=== PATIENT | female | born 1990 | race Two or more races ===

== ENCOUNTER → 2024-05-29 | Outpatient (BNVA) | payer MEDICAID, SELFPAY | END | disposition home or self-care (01) | PROVIDERS: PCP Nurse Practitioner Family; Referring Provider Nurse Practitioner Family; Visit Provider Nurse Practitioner Family | DX: Z71.2 Person consulting for explanation of examination or test findings (principal) | CPT/HCPCS: 99213 ==

== ENCOUNTER 2024-07-24 06:55 | Day surgery (SDC) | payer MEDICAID, SELFPAY ==
[2024-07-23 16:55] LABS: HCG Qualitative,Urine Negative
[2024-07-24] VITALS (10 sets, daily range): BP systolic 90–116; BP diastolic 63–77; PULSE 73–95; RESP 11–22; TEMP 36.1–36.2; O2SAT 98–100; BMI 22.3
[2024-07-24] MEDS: fentaNYL CIT INJ 50 mCg/ML AMP 2ML (ASD USE ONLY) IV (08:44)
[2024-07-24] MEDS: MIDAZOLAM INJ 1 MG/ML VIAL 2 ML (ASD USE ONLY) 2 MG IV (08:44)
[2024-07-24] MEDS: DiphenhydrAMINE INJ 50 MG/ML VIAL 25 MG IV (08:44)
[2024-07-24] MEDS: BENZOCAINE 20% (Hurricaine) SPRAY 1 DOSE TOP (08:45)
--- NOTE | 2024-07-24 09:08 | SUR.PHASEII ---
0853 patient is sleepy and arousable, breathing unlabored, s/p EGD by dr Blunt. Report received from Paige ROSENBERG.
--- NOTE | 2024-07-24 09:45 | SUR.PHASEII ---
patient is awake, alert, breathing unlabored, able to tolerate water with no nausea or vomiting, discharge instructions given to patient and sister Larisa, meets discharge criteria, waiting for Dr. Blunt to talk to patient per MD request.
--- NOTE | 2024-07-24 09:59 | SUR.PHASEII ---
0953 patient is awake, alert, breathing unlabored, dr talley talk to patient and family and answer all questions, patient discharged home in wheelchair with all belongings.
== END 2024-07-24 09:53 | disposition home or self-care (01) ==
PROVIDERS: PCP Nurse Practitioner Family; Referring Provider Internal Medicine Gastroenterology; Visit Provider Internal Medicine Gastroenterology
PROC: (CPT 43239; principal; 2024-07-24 07:30)
DX: K29.70 Gastritis, unspecified, without bleeding (principal); K29.50 Unspecified chronic gastritis without bleeding; K31.89 Other diseases of stomach and duodenum
CPT/HCPCS: 43239; 81025; A4649; J1200; J2250; J3010; A9270

== ENCOUNTER 2024-08-09 08:45 | Day surgery (SDC) | payer MEDICAID, SELFPAY ==
[2024-08-08 11:40] LABS: HCG Qualitative,Urine Negative
[2024-08-08 13:14] VITALS: BMI 31.6
[2024-08-09] VITALS (12 sets, daily range): BP systolic 94–116; BP diastolic 61–72; PULSE 76–112; RESP 12–21; TEMP 36.4–36.8; O2SAT 98–100; BMI 22.3
[2024-08-09] MEDS: SODIUM CHLORIDE 0.9% 500 ML 500 ML 20 ML IV (10:50)
[2024-08-09] MEDS: DiphenhydrAMINE INJ 50 MG/ML VIAL 25 MG IV (10:55)
[2024-08-09] MEDS: MIDAZOLAM INJ 1 MG/ML VIAL 2 ML (ASD USE ONLY) 2 MG IV (11:05)
[2024-08-09] MEDS: fentaNYL CIT INJ 50 mCg/ML AMP 2ML (ASD USE ONLY) IV ×2 (11:05→11:07)
--- NOTE | 2024-08-09 11:20 | SUR.PHASEII ---
Patient into recovery room with no acute distress noted, v/s stable, no complaints of pain or nausea at this time. Patient repositions self for comfort. Patient actively passing flatus. Report received from Ivonne ROSENBERG.
== END 2024-08-09 12:05 | disposition home or self-care (01) ==
PROVIDERS: PCP Nurse Practitioner Family; Referring Provider Internal Medicine Gastroenterology; Visit Provider Internal Medicine Gastroenterology
PROC: 0DBE8ZX Excision of Large Intestine, Via Natural or Artificial Opening Endoscopic, Diagnostic (ICD-10-PCS; CPT 45380; principal; 2024-08-09 08:30)
DX: K64.8 Other hemorrhoids (principal)
CPT/HCPCS: 45380; 81025; A4649; J1200; J2250; J3010; J7040

== ENCOUNTER → 2024-09-06 | Outpatient (BNVA) | payer MEDICAID, SELFPAY | END | disposition home or self-care (01) | PROVIDERS: PCP Nurse Practitioner Family; Referring Provider Nurse Practitioner Family; Visit Provider Nurse Practitioner Family | DX: R59.0 Localized enlarged lymph nodes (principal) | CPT/HCPCS: 99213 ==

== ENCOUNTER → 2024-09-21 | Outpatient (BNVA) | payer MEDICAID, SELFPAY | END | disposition home or self-care (01) | PROVIDERS: PCP Nurse Practitioner Family; Referring Provider Nurse Practitioner Family; Visit Provider Nurse Practitioner Family | DX: Z76.89 Persons encountering health services in other specified circumstances (principal) | CPT/HCPCS: 99213 ==

== ENCOUNTER → 2024-10-12 | Outpatient (BNVA) | payer MEDICAID, SELFPAY | END | disposition home or self-care (01) | PROVIDERS: PCP Nurse Practitioner Primary Care; Referring Provider Nurse Practitioner Primary Care; Visit Provider Nurse Practitioner Primary Care | DX: H66.91 Otitis media, unspecified, right ear (principal) | CPT/HCPCS: 99212 ==

== ENCOUNTER → 2024-10-24 | Outpatient (BNVA) | payer MEDICAID, SELFPAY | END | disposition home or self-care (01) | PROVIDERS: PCP Nurse Practitioner Family; Referring Provider Nurse Practitioner Family; Visit Provider Nurse Practitioner Family | DX: H92.01 Otalgia, right ear (principal) | CPT/HCPCS: 99214 ==

== ENCOUNTER → 2024-10-29 | Outpatient (BNVA) | payer MEDICAID, SELFPAY | END | disposition home or self-care (01) | PROVIDERS: PCP Nurse Practitioner Primary Care; Referring Provider Nurse Practitioner Primary Care; Visit Provider Nurse Practitioner Primary Care | DX: H92.01 Otalgia, right ear (principal) | CPT/HCPCS: 99212 ==

== ENCOUNTER → 2024-11-07 | Outpatient (BNVA) | payer MEDICAID, SELFPAY | END | disposition home or self-care (01) | PROVIDERS: PCP Nurse Practitioner Family; Referring Provider Nurse Practitioner Family; Visit Provider Nurse Practitioner Family | DX: R10.9 Unspecified abdominal pain (principal) | CPT/HCPCS: 99215 ==

== ENCOUNTER → 2024-11-13 | Outpatient (BNVA) | payer MEDICAID, SELFPAY | END | disposition home or self-care (01) | PROVIDERS: PCP Nurse Practitioner Family; Referring Provider Nurse Practitioner Family; Visit Provider Nurse Practitioner Family | DX: H92.01 Otalgia, right ear (principal); R59.9 Enlarged lymph nodes, unspecified; H67.1 Otitis media in diseases classified elsewhere, right ear | CPT/HCPCS: 99202; 99213 ==

== ENCOUNTER → 2024-11-15 | Outpatient (BNVA) | payer MEDICAID, SELFPAY | END | disposition home or self-care (01) | PROVIDERS: PCP Nurse Practitioner Family; Referring Provider Nurse Practitioner Family; Visit Provider Nurse Practitioner Family | DX: Z71.2 Person consulting for explanation of examination or test findings (principal); K08.89 Other specified disorders of teeth and supporting structures; H92.01 Otalgia, right ear | CPT/HCPCS: 96372; 99213; J1885 ==

== ENCOUNTER → 2024-11-16 | Outpatient (BNVA) | payer MEDICAID, SELFPAY | END | disposition home or self-care (01) | PROVIDERS: PCP Nurse Practitioner Family; Referring Provider Nurse Practitioner Family; Visit Provider Nurse Practitioner Family | DX: Z71.2 Person consulting for explanation of examination or test findings (principal); H92.01 Otalgia, right ear; K08.89 Other specified disorders of teeth and supporting structures | CPT/HCPCS: 99213 ==

== ENCOUNTER → 2024-11-27 | Outpatient (BNVA) | payer MEDICAID, SELFPAY | END | disposition home or self-care (01) | PROVIDERS: PCP Nurse Practitioner Family; Referring Provider Nurse Practitioner Family; Visit Provider Nurse Practitioner Family | DX: Z12.4 Encounter for screening for malignant neoplasm of cervix (principal); A63.0 Anogenital (venereal) warts | CPT/HCPCS: 81001; 99215; Q0091 ==

== ENCOUNTER → 2024-12-11 | Outpatient (BNVA) | payer MEDICAID, SELFPAY | END | disposition home or self-care (01) | PROVIDERS: PCP Nurse Practitioner Family; Referring Provider Nurse Practitioner Family; Visit Provider Nurse Practitioner Family | DX: A63.0 Anogenital (venereal) warts (principal); Z71.2 Person consulting for explanation of examination or test findings | CPT/HCPCS: 99212; G0463 ==

== ENCOUNTER → 2024-12-17 | Outpatient (BNVA) | payer MEDICAID, SELFPAY | END | disposition home or self-care (01) | PROVIDERS: PCP Nurse Practitioner Family; Referring Provider Nurse Practitioner Family; Visit Provider Nurse Practitioner Family | DX: J00 Acute nasopharyngitis [common cold] (principal) | CPT/HCPCS: 99212; G0463 ==

== ENCOUNTER → 2025-01-18 | Outpatient (CLI) | payer MEDICAID, SELFPAY ==
--- NOTE | 2025-01-18 08:49 | XR_ITS ---
Examination: CT middle inner ear, without contrast. 2-D coronal reconstructions. 2-D sagittal reconstructions. Date and time of exam: January 18, 2025 0859 hours INDICATIONS: Chronic right ear pain with lump behind the right ear CTDI: vol (mGy): 13.6 DLP: (mGycm):158 Technique: Multiple 1.0 mm axial sections of the middle inner ears bilaterally. High-resolution 64 slice scanner utilized. 2-D coronal reconstructions 2-D sagittal reconstructions Low dose protocols were performed. One or more of the following dose reduction techniques were used; automated exposure control, adjustment of the mA and/or KV according to patient size, use of iterative reconstruction technique. Findings: Axial sections of the right demonstrate adequate mastoid aeration. Jugular fossa and carotid canal do not appear remarkable. No deformity of the ossicles. Porus acusticus internus does not exhibit erosion. Cochlear apparatus unremarkable. Semicircular canals normal. External auditory canal open. Coronal reconstructions demonstrate no erosion of the scutum. No soft tissue mass in the attic or Prussak's space is seen. Ossicular mass intact. Axial sections of the left demonstrate adequate mastoid aeration. Jugular fossa and carotid canal do not appear remarkable. No deformity of the ossicles. Porus acusticus internus does not exhibit erosion. Cochlear apparatus unremarkable. Semicircular canals normal. External auditory canal open Coronal reconstructions demonstrate no erosion of the scutum. No soft tissue mass in the attic or Prussak's space is seen. Ossicular mass intact. Roof of the mastoid air cells appear intact bilaterally. Impression: Negative for acute mastoiditis Negative for otitis media or otitis externa Minimal soft tissue prominence adjacent to the right mastoid air cells which may represent cellulitis, recommend ultrasound soft tissue of the area behind the right ear follow-up
== END | disposition home or self-care (01) ==
PROVIDERS: PCP Nurse Practitioner Family; Referring Provider Nurse Practitioner Family; Visit Provider Nurse Practitioner Family
DX: H92.01 Otalgia, right ear (principal); H74.8X1 Other specified disorders of right middle ear and mastoid
CPT/HCPCS: 70480

== ENCOUNTER → 2025-01-22 | Outpatient (BNVA) | payer MEDICAID, SELFPAY | END | disposition home or self-care (01) | PROVIDERS: PCP Nurse Practitioner Family; Referring Provider Nurse Practitioner Family; Visit Provider Nurse Practitioner Family | DX: Z71.2 Person consulting for explanation of examination or test findings (principal); H92.01 Otalgia, right ear | CPT/HCPCS: 99214 ==

== ENCOUNTER → 2025-01-28 | Outpatient (BNVA) | payer MEDICAID, SELFPAY | END | disposition home or self-care (01) | PROVIDERS: PCP Nurse Practitioner Family; Referring Provider Nurse Practitioner Family; Visit Provider Nurse Practitioner Family | DX: D22.4 Melanocytic nevi of scalp and neck (principal) | CPT/HCPCS: 99215; J3490; A9270 ==

== ENCOUNTER 2025-02-01 02:13 | Emergency (ER) | payer MEDICAID, SELFPAY ==
[2025-02-01 02:14] VITALS: BMI 22.6
[2025-02-01 02:19] VITALS: BP 103/69; PULSE 91; RESP 19; TEMP 36.7
[2025-02-01] MEDS: DIAZEPAM 5 MG TABLET PO (02:57)
--- NOTE | 2025-02-01 03:04 | PD.EDANX ---
ED Anxiety RME/HPI General Chief Complaint: General Adult/Misc Complain Stated Complaint: TROUBLE SLEEPING Time Seen by Provider: 02/01/25 02:44 Arrival date/time: 02/01/25 02:13 34F with history of anxiety presents to ED with insomnia, intermittent body numbness/tingling, as well as some heart palps. Patient is concerned she inhaled too much [employer] [place] Glue that she used for her kid's school projects. Limitations: no limitations Related Data Previous Rx's ?Medication ?Instructions ?Recorded ibuprofen 600 mg tablet 600 mg PO Q8H #20 tabs 10/29/24 loratadine 10 mg tablet 10 mg PO QDAY #90 tabs 12/17/24 Allergies Allergy/AdvReac Type Severity Reaction Status Date / Time clams Allergy Unknown Verified 01/28/25 13:37 lobster Allergy Unknown Verified 01/28/25 13:37 oyster extract Allergy Unknown Verified 01/28/25 13:37 shrimp Allergy Unknown Verified 01/28/25 13:37 Review of Systems Review of Systems Systems Reviewed: All systems reviewed, normal except as documented Constitutional Constitutional: Reports system reviewed and no additional complaints, except as documented, Denies fever(s) and Denies headache(s) ENT Ears, Nose, Mouth, and Throat: Denies disequilibrium and Denies headache(s) Cardiovascular Cardiovascular: Reports system reviewed and no additional complaints, except as documented, Reports as per HPI, Denies chest pain, Denies dyspnea and Reports palpitations Respiratory Respiratory: Reports system reviewed and no additional complaints, except as documented, Denies cough and Denies dyspnea Gastrointestinal Gastrointestinal: Reports system reviewed and no additional complaints, except as documented, Denies abdominal pain, Denies nausea and Denies vomiting Musculoskeletal Musculoskeletal: Reports numbness and Reports tingling Neurologic Neurologic: Reports system reviewed and no additional complaints, except as documented, Reports as per HPI, Denies confusion, Denies disequilibrium, Denies headache(s), Reports numbness and Reports tingling Psychiatric Psychiatric: Reports as per HPI, Denies confusion and Reports other (insomnia) Endocrine Endocrine: Reports palpitations Past Medical History Past Medical History NEUROLOGIC: Negative Neurological Disorders or Seizures CARDIAC: Negative Cardiac Disorders or Congestive Heart Failure RESPIRATORY: Negative Chronic Obstructive Pulmonary Disease (COPD) GASTROINTESTINAL: Positive Gastrointestinal Disorders and Gastroesophageal Reflux Disease GENITOURINARY: Positive Genitourinary Disorders MUSCULOSKELETAL: Positive Musculoskeletal Disorders (wrist fx as a kid) ENDOCRINE: Negative Endocrine Disorders, Diabetes Mellitus Type 1 or Diabetes Mellitus Type 2 HEMATOLOGIC: Negative Blood Disorders or Anemia OTHER HISTORY: Negative Hospitalization, Down Syndrome, Developmental Delay, Falls, Blood Transfusions, Anesthesia Reactions, Chicken Pox, Measles or Mumps Social History SMOKING STATUS: Never smoker SECOND HAND EXPOSURE: No ED Exam General Limitations: Present no limitations General appearance: Present alert, in no apparent distress and anxious Head Head exam: Present atraumatic Eye Eye exam: Present normal appearance, PERRL and EOMI ENT ENT exam: Present normal exam, normal oropharynx and mucous membranes moist Neck Neck exam: Present normal inspection, full ROM and trachea midline Chest Chest inspection: Present normal inspection and symmetric chest wall rise Respiratory Respiratory exam: Present normal lung sounds bilaterally Cardiovascular Cardiovascular exam: Present regular rate, normal rhythm and normal heart sounds Abdominal Exam Abdominal exam: Present soft and normal bowel sounds Extremities Exam Extremities exam: Present normal inspection and full ROM Back Exam Back exam: Present normal inspection and full ROM Neurological Exam Neurological exam: Present alert, oriented X3 and CN II-XII intact Psychiatric Psychiatric exam: Present normal affect and normal mood Skin Skin exam: Present warm, dry, intact and normal color Course Quality Measures none Orders Category Date Time Status Diazepam [Valium] Med 02/01/25 02:44 Discontinued 5 mg PO X1 ONE DiphenhydrAMINE [Benadryl] Med 02/01/25 02:44 Discontinued 25 mg PO X1 ONE Vital Signs Vital signs: Vital Signs Temperature 98.1 F 02/01/25 02:19 Pulse Rate 91 02/01/25 02:19 Respiratory Rate 19 02/01/25 02:19 Blood Pressure 103/69 02/01/25 02:19 Oxygen Delivery Method Room Air 02/01/25 02:19 Anxiety MDM Narrative MDM Narrative: 34F with history of anxiety presents to ED with insomnia, intermittent body numbness/tingling, as well as some heart palps. Patient is concerned she inhaled too much [employer] [place] Glue that she used for her kid's school projects. Physical exam reveals clear orophyarnx. Normal WOB. Patient is afebrile, alert, but anxious. Speech normal. Gait normal. Unlikely toxic effect of spray glue given that causes [employer] depression rather than agitation. Meds and counselor aide given. Patient data External records reviewed:: [facility] previous records Clinical information provided by:: patient Social determinants that could affect healthcare access:: mental health Patient has the following chronic illnesses:: anxiety How is presenting disease/condition affected by chronic disease/condition?: exacerbated by Evaluation data The following diagnostics were reviewed and interpreted by me:: other (specify) (none) Lab and/or radiology exams considered but not ordered:: not ordered Interpretation Summary: n/a Medications / Prescriptions Medications or Prescriptions considered but not ordered:: ordered Medication administrations:: Medication Administration History Discontinued Medications Diazepam (Diazepam 5 Mg Tablet) 5 mg PO X1 ONE Stop: 02/01/25 02:45 Last Admin: 02/01/25 02:57 Dose: 5 mg Documented By: EE Diphenhydramine HCl (Diphenhydramine 25 Mg Capsule) 25 mg PO X1 ONE Stop: 02/01/25 02:45 Last Admin: 02/01/25 02:57 Dose: 25 mg Documented By: KEYSHAWN Consultations Consultation(s) initiated? (list below): No Diagnosis Differential diagnosis anxiety: hyperventilation, panic disorder, acute anxiety and other (insomnia) Most likely diagnosis given after review of the tests above:: insomnia Admission Indicated Admission indicated?: not indicated Admission Request Was there a request for admission?: No Disposition Plan Disposition Plan: Discharge Discharge Attestation Discharge Attestation: The patient and all family members were given an opportunity to ask questions and understood the discharge instructions. Discharge instructions specifically effects, indications for sooner follow up or return to the emergency department, and the expected course of current diagnosis. Patient condition: Stable Discharge Plan Plan Patient Disposition: HOME (Self Care) Discharge Disposition comment: Stable Prescriptions/Referrals Prescriptions/Med Rec: No Action ibuprofen 600 mg tablet 600 mg PO Q8H Qty: 20 0RF loratadine 10 mg tablet 10 mg PO QDAY Qty: 90 1RF Referrals: Temporary Provider,ED [Physician] - In 1 week Problem List Clinical Impression: Insomnia Patient/Caregiver Discharge Instructions Education Materials: ED Insomnia Additional Instructions: Please follow-up with PCP within 24-48 hours and return immediately if symptoms worsen. Print Language: Ethiopian Stand Alone Forms: Patient Portal Info Letter ALEKSANDER/JORDEN Supervising Physician ALEKSANDER/JORDEN Supervising Physician: Dr. Cruz
== END 2025-02-01 02:59 | disposition home or self-care (01) ==
LOC: SERX 02:54
PROVIDERS: Emergency Provider Emergency Medicine; PCP Nurse Practitioner Family
DX: G47.00 Insomnia, unspecified (principal)
CPT/HCPCS: 99282; A9270

== ENCOUNTER → 2025-02-06 | Outpatient (BNVA) | payer MEDICAID, SELFPAY | END | disposition home or self-care (01) | PROVIDERS: PCP Nurse Practitioner Family; Referring Provider Nurse Practitioner Family; Visit Provider Nurse Practitioner Family | DX: Z71.1 Person with feared health complaint in whom no diagnosis is made (principal) | CPT/HCPCS: 99213 ==

== ENCOUNTER → 2025-02-07 | Outpatient (BNVA) | payer MEDICAID, SELFPAY | END | disposition home or self-care (01) | PROVIDERS: PCP Nurse Practitioner Family; Referring Provider Nurse Practitioner Family; Visit Provider Nurse Practitioner Family | DX: Z71.1 Person with feared health complaint in whom no diagnosis is made (principal) | CPT/HCPCS: 99212; G0463 ==

== ENCOUNTER → 2025-02-13 | Outpatient (BNVA) | payer MEDICAID, SELFPAY | END | disposition home or self-care (01) | PROVIDERS: PCP Nurse Practitioner Family; Referring Provider Nurse Practitioner Family; Visit Provider Nurse Practitioner Family | DX: D22.4 Melanocytic nevi of scalp and neck (principal) | CPT/HCPCS: 99212; 99213 ==

== ENCOUNTER → 2025-03-05 | Outpatient (BNVA) | payer MEDICAID, SELFPAY | END | disposition home or self-care (01) | PROVIDERS: PCP Nurse Practitioner Primary Care; Referring Provider Nurse Practitioner Primary Care; Visit Provider Nurse Practitioner Primary Care | DX: R10.13 Epigastric pain (principal) | CPT/HCPCS: 99213 ==

== ENCOUNTER → 2025-03-21 | Outpatient (BNVA) | payer MEDICAID, SELFPAY | END | disposition home or self-care (01) | PROVIDERS: PCP Nurse Practitioner Family; Referring Provider Nurse Practitioner Family; Visit Provider Nurse Practitioner Family | DX: Z71.2 Person consulting for explanation of examination or test findings (principal); R10.13 Epigastric pain | CPT/HCPCS: 99212; G0463 ==

== ENCOUNTER → 2025-03-28 | Outpatient (CLI) | payer MEDICAID, SELFPAY ==
--- NOTE | 2025-03-28 15:00 | XR_ITS ---
Examination: Ultrasound soft tissue head and neck Date and time: March 28, 2025, 1325 hours INDICATIONS: Chronic ear pain, CT middle inner ear January 18, 2025 minimal soft tissue prominence adjacent to the right mastoid air cells, palpable lump posterior right ear 8 months FINDINGS technique and findings: Multiple soft tissue sonographic images in the area posterior to the right ear Lymph nodes at the area concern posterior right ear, 8 x 3 mm, 4 x 3 mm, 5 x 2 mm IMPRESSION: Small lymph nodes at the area concern posterior to the right as above
== END | disposition home or self-care (01) ==
LOC: CDIM 14:48
PROVIDERS: PCP Nurse Practitioner Family; Referring Provider Nurse Practitioner Family; Visit Provider Nurse Practitioner Family
DX: R59.0 Localized enlarged lymph nodes (principal); H92.01 Otalgia, right ear
CPT/HCPCS: 76536

== ENCOUNTER → 2025-04-04 | Outpatient (BNVA) | payer MEDICAID, SELFPAY | END | disposition home or self-care (01) | PROVIDERS: PCP Nurse Practitioner Family; Referring Provider Nurse Practitioner Family; Visit Provider Nurse Practitioner Family | DX: R59.0 Localized enlarged lymph nodes (principal); Z28.21 Immunization not carried out because of patient refusal | CPT/HCPCS: 99213 ==

== ENCOUNTER → 2025-04-16 | Outpatient (BNVA) | payer MEDICAID, SELFPAY | END | disposition home or self-care (01) | PROVIDERS: PCP Nurse Practitioner Family; Referring Provider Nurse Practitioner Family; Visit Provider Nurse Practitioner Family | DX: J30.9 Allergic rhinitis, unspecified (principal) | CPT/HCPCS: 99213 ==

== ENCOUNTER → 2025-06-14 | Outpatient (BNVA) | payer MEDICAID, SELFPAY | END | disposition home or self-care (01) | PROVIDERS: PCP Nurse Practitioner Family; Referring Provider Nurse Practitioner Family; Visit Provider Nurse Practitioner Family | DX: Z76.0 Encounter for issue of repeat prescription (principal); J30.9 Allergic rhinitis, unspecified | CPT/HCPCS: 99212; G0463 ==